=== PATIENT | female | born 1995 | race Asian ===

== ENCOUNTER 2016-03-31 21:06 | Emergency (ER) | payer OTHER ==
[2016-03-31 21:48] LABS: COLOR LT. YELLOW; LEUKOCYTE ESTERASE,URINE 2+ (NEGATIVE); NITRITE,URINE POSITIVE (NEGATIVE)
[2016-03-31 21:53] LABS: WBC,URINE 50-182 /hpf (0-3)
[2016-03-31 21:54] LABS: BACTERIA 1+ /hpf (NONE SEEN)
[2016-03-31] MEDS ORDERED: NS 1,000 ML IV ONE (22:36)
[2016-03-31] MEDS ORDERED: KETOROLAC 30 MG/1 ML SDV IVP ONE (22:37)
--- NOTE | 2016-03-31 22:41 | EDPHY ---
H & P Time Seen by Provider: 03/31/16 22:38 HPI/ROS: HPI: 20-year-old female presents to emergency department with chief concern bilateral flank pain. Reports onset of bilateral flank pain yesterday. Reports up to 9/10 flank pain causing her to double over on the way into the emergency department associated with 1-2 episodes of emesis. Pain is 5/10 now. Had urinary burning and frequency x1 week. Denies fever, chills, myalgias, abdominal pain, diarrhea. No history of pyelonephritis. 1 UTI in the past year. Family history of kidney stones. ROS:10 point review of systems is negative other than as stated in HPI Social History: [employer] student Smoking Status: Never smoked Physical Exam: Vital signs stable, reviewed by me General: Awake, alert, calm, cooperative. No acute distress. Head: Normalocephalic. Atraumatic. EENT: PERRLA. EOMI. No pallor or injection. Anicteric. No nystagmus. No injection. TMs intact bilaterally with normal landmarks. No rhinnorhea, nasal passages clear. Oropharynx without redness, exudates, or lesions. Tonsils 2+ bilaterally, no exudates. Neck: Supple, nontender. No lymphadenopathy. Full range of motion. No meningismus. Respiratory: Breathing unlabored. Breath sounds equal bilaterally and clear to auscultation. No adventitious sounds. CV: Chest nontender, atraumatic. Heart rate regular. No murmur, distal pulses 2+ bilaterally. Brisk cap refill all extremities. GI: Abdomen soft, mild right mid tenderness. Bowel sounds normoactive and positive x4 quadrants. : No suprapubic tenderness. Bilateral flank tenderness Neuro: Alert. Oriented x 3. Speech clear. Nonfocal cranial nerves throughout. Sensation intact all extremities. Skin: Skin warm, dry, intact. No rashes, abrasions, or lacerations. Skin turgor normal. Extremities: Full range of motion in all 4 extremities. Strength 5+ all extremities. Constitutional: Initial Vital Signs Temperature (C) 36.8 C 03/31/16 21:13 Heart Rate 96 03/31/16 21:13 Respiratory Rate 18 03/31/16 21:13 Blood Pressure 102/60 03/31/16 21:13 O2 Sat (%) 95 03/31/16 21:13 O2 Delivery Mode Room Air Allergies/Adverse Reactions: No Known Allergies Allergy (Unverified 03/31/16 21:11) Home Medications: Medication Instructions Recorded Cephalexin [Keflex (*)] 500 mg PO TID #30 cap 03/31/16 Ciprofloxacin 03/31/16 Sertraline HCl 03/31/16 Wellbutrin Xl 03/31/16 Medical Decision Making - Diagnostics Imaging: CT Abdomen and Pelvis (Renal Stone Study) 2338 hours Skeletal system: Vertebral body heights are well-maintained. There are no lytic or sclerotic osseous lesions. Impression: 1. Nonobstructive calculus mid left kidney. 2. Small amount of free fluid in the cul-de-sac. Normal-appearing uterus and adnexa. Dictated By: Cedric Stein MD ED Course/Re-evaluation: 20-year-old female presents to emergency department bilateral flank pain. Had ongoing urinary symptoms for the past week. She is afebrile. Vitals are stable. Urinalysis shows 3+ blood, positive for nitrates, 2+ esterase, 10-15 RBCs, 50-180 to WBCs, 1+ bacteria. Urine culture pending. CT abdomen pelvis to rule out kidney stones ordered as she has a family history of kidney stones and had crippling 10/10 right flank pain on her way into the ED associated with nausea and vomiting. 1 L normal saline, 30 mg IV Toradol, and 1 g IV ceftriaxone given. 1220: Vitals stable. Patient feels much better. No obstructing calculi on CT. Discharged with three times daily Keflex times 10 days and follow up with primary care. Sent with take-home David. Differential Diagnosis: Kidney infection, kidney stone - Data Points Laboratory Results: 03/31/16 03/31/16 22:55 21:20 Beta HCG, Qual NEGATIVE Urine Color LT. YELLOW Urine Appearance CLOUDY Urine pH 6.0 (5.0-7.5) Ur Specific [place] 1.025 (1.002-1.030) Urine Protein 3+ H (NEGATIVE) Urine Ketones NEGATIVE (NEGATIVE) Urine Blood 3+ H (NEGATIVE) Urine Nitrate POSITIVE H (NEGATIVE) Urine Bilirubin NEGATIVE (NEGATIVE) Urine Urobilinogen 0.2 EU (0.2-1.0) Ur Leukocyte Esterase 2+ H (NEGATIVE) Urine RBC 10-15 H /hpf (0-3) Urine WBC 50-182 H /hpf (0-3) Ur Epithelial Cells TRACE /lpf (NONE-1+) Urine Bacteria 1+ H /hpf (NONE SEEN) Urine Glucose NEGATIVE (NEGATIVE) Medications Given: Discontinued Medications Acetaminophen/Hydrocodone Bitart ([place] 5/325mg Prepack#6) 1 btl TAKEHOME EDNOW ONE Stop: 03/31/16 22:44 Last Admin: 03/31/16 23:02 Dose: 1 btl Ceftriaxone Sodium/Dextrose (Rocephin 1 Gm (Premix)) 50 mls @ 100 mls/hr IV EDNOW ONE PRN Reason: Protocol Stop: 03/31/16 23:06 Last Admin: 03/31/16 22:59 Dose: 50 mls Sodium Chloride (Ns) 1,000 mls @ 0 mls/hr IV ONCE ONE PRN Reason: Wide Open Stop: 03/31/16 22:37 Last Admin: 03/31/16 23:04 Dose: 1,000 mls Ketorolac Tromethamine (Toradol) 30 mg IVP EDNOW ONE Stop: 03/31/16 22:38 Last Admin: 03/31/16 23:03 Dose: 30 mg Ondansetron HCl (Zofran Odt 4 Mg Prepack#2) 1 btl TAKEHOME EDNOW ONE Stop: 03/31/16 22:44 Last Admin: 03/31/16 23:03 Dose: 1 btl Departure - Departure Disposition: Home, Routine, Self-Care Clinical Impression: Kidney infection Condition: Good Instructions: Cephalexin (By mouth), Hydrocodone/Acetaminophen (By mouth), Ondansetron (By mouth), Kidney Infection (ED) Additional Instructions: Plan: Keflex antibiotic 3 times daily for 10 days Take an [id number] probiotic and/or eat yogurt while taking this antibiotic. You may use 600 mg of ibuprofen every 6 hours for fever, inflammation, or pain. Always take ibuprofen with food and stay well hydrated while taking. Do not exceed the maximum allowable dose in a 24 hour period which is 2400 mg. You may use 1000 mg of Tylenol every 8 hours. This may be staggered with the ibuprofen. Do not exceed the maximum dose in a 24 hour period which is 3 GM or 3000 mg. For severe pain, 1 [place] every 4 hours as needed 1 Zofran every 4-6 hours as needed for nausea Drink plenty fluids Follow up with primary care within the next 1-2 days for recheck without fail-- When you call to schedule appointment, please let the office know you are an " ER follow up" appointment" If you are unable to take your antibiotic medication for any reason is imperative that you return to ER promptly Referrals: [place],. [Primary Care Provider] - As per Instructions Prescriptions: Cephalexin [Keflex (*)] 500 mg PO TID #30 cap
[2016-03-31] MEDS ORDERED: HYDROCOD/APAP 5/325 PREPACK#6 BTL TAKEHOME ONE (22:43)
[2016-03-31] MEDS ORDERED: ONDANSETRON 4MG PREPACK#2 BTL TAKEHOME ONE (22:43)
--- NOTE | 2016-03-31 23:53 | CT ---
CT Abdomen and Pelvis (Renal Stone Study) 2338 hours History: Right flank pain and abdominal pain. Technique: Multidetector helical CT imaging was performed from the kidneys to the urinary bladder wi thout contrast. Images were reconstructed utilizing thin slices and reviewed in multiple planes. Dos e reduction techniques were utilized. CT Abdomen and Pelvis Findings: Kidneys: Within the mid left kidney there is a 1-2 mm nonobstructive calculus. No additional renal ca lculi are seen in either side. There is no evidence of ureteral calculus. Extrarenal pelvis is suspec kerline on the right. Lung bases: Normal. Liver: Normal. Spleen: Normal. Gallbladder and Bile Ducts: Normal. Pancreas: Normal. Adrenals: Normal. Abdominal Aorta: No aneurysm. Pelvic structures: The uterus has a normal contour. No adnexal mass is seen. There is a small amount of free fluid in the cul-de-sac. Bladder: Normal. Appendix: There is some increased density in the distal tip of the appendix without thickening. Bowel Loops: Normal. No bowel obstruction, ascites, or significant retroperitoneal lymphadenopathy. Skeletal system: Vertebral body heights are well-maintained. There are no lytic or sclerotic osseous lesions. Impression: 1. Nonobstructive calculus mid left kidney. 2. Small amount of free fluid in the cul-de-sac. Normal-appearing uterus and adnexa. These findings were discussed by telephone with Aishwarya Levi NP at 2350 hours. Attention: This CT examination is specifically designed to evaluate patients who are clinically suspe cted of having acute obstructive uropathy. This examination does not use radiographic contrast, and as such, provides only a limited evaluation of the abdomen, pelvis and retroperitoneum. If there is further clinical suspicion for pathological conditions other than obstructive uropathy, a complete C T evaluation of the abdomen and pelvis utilizing intravenous, oral, and rectal contrast should be con sidered.
[2016-03-31 23:56] VITALS: BP 104/73; PULSE 80; RESP 16; TEMP 98.8; O2SAT 96
== END 2016-04-01 00:02 | disposition home or self-care (01) ==
DX: N15.9 Renal tubulo-interstitial disease, unspecified (principal)
CPT/HCPCS: 96365; J0696; J1885